=== PATIENT | male | born 2005 | race Caucasian/White ===

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

== ENCOUNTER 2024-02-06 12:35 | Outpatient (CLI) | payer OTHER, SELFPAY ==
--- NOTE | 2024-02-06 12:39 | XR_ITS ---
FINAL REPORT CLINICAL HISTORY: right shoulder injury..shielded FINDINGS: Two views show no evidence of acute displaced fracture or dislocation of the visualized bony architecture. The joint spaces appear normal. IMPRESSION: Unremarkable exam. Reviewed, Interpreted and Dictated by Neptali Main MD Transcribed by Kiah Malik Authenticated and . [facility]
== END 2024-02-06 23:59 | disposition home or self-care (01) ==
LOC: RAD 12:36
PROVIDERS: PCP Family Medicine; Visit Provider Physician Assistant
DX: M25.511 Pain in right shoulder (principal); M79.601 Pain in right arm; S49.91XA Unspecified injury of right shoulder and upper arm, initial encounter
CPT/HCPCS: 73030